=== PATIENT | male | born 1995 | race Caucasian/White ===

== ENCOUNTER 2019-06-06 01:15 | Emergency (ER) | payer BC ==
[2019-06-06] MEDS ORDERED: Sodium Chloride 0.9% 10 ML Syringe FLUSH PRN (01:54)
[2019-06-06] MEDS ORDERED: Sodium Chloride 0.9% 2.5 ML Syringe FLUSH PRN (01:54)
--- NOTE | 2019-06-06 02:04 | EDM.PDOC ---
ED HPI GENERAL MEDICAL PROBLEM - General Chief Complaint: Abdominal Pain Stated Complaint: ABDOMINAL PAIN/RIGHT SIDE PAIN Time Seen by Provider: 06/06/19 01:28 - History of Present Illness INITIAL COMMENTS - FREE TEXT/NARRATIVE: 23-year-old male presents with abdominal pain. Patient ports a 2-day history of mild right abdominal "swelling" about a month ago which mildly on its own. Then he is had about 2 days again of the same swelling. He had very fleeting lower back pain today for about [address] away on its own. Then he began to have right far lower pain this morning in his inguinal crease which went away. Now he has right upper and right middle abdomen pressure which he says feels like something is blowing up or swelling in his abdomen. Patient denies any fever, dysuria, chest pain, shortness of breath, weakness, numbness, sore joints, vision changes, confusion, headache, vision changes. Right Abdomen Pain Score (Numeric/FACES): 3 - Related Data Allergies Allergy/AdvReac Type Severity Reaction Status Date / Time No Known Allergies Allergy Verified 06/06/19 01:28 Home Meds: Home Meds . [No Known Home Meds] 06/06/19 [History] Past Medical History HEENT History: Reports: Impaired Vision Social & Family History - Family History Family Medical History: Noncontributory - Tobacco Use Years of Tobacco use: 20 Packs/Tins Daily: 3 - Caffeine Use Caffeine Use: Reports: None - Recreational Drug Use Recreational Drug Use: Yes Drug Use in Last 12 Months: Yes Recreational Drug Type: Reports: Marijuana/Hashish ED ROS GENERAL - Review of Systems Review Of Systems: Comprehensive ROS is negative, except as noted in HPI. ED EXAM, GENERAL - Physical Exam Exam: See Below Free Text/Narrative:: General: No acute distress. Comfortable. Heent: Examination revealed no pallor, no icterus, no lymphadenopathy. The patient has normal posterior pharynx, moist mucous membranes. Neck: Supple. No JVD. No rigidity. Heart: Normal rate. Reg rhythm. No murmurs appreciated. Lungs: Bilaterally clear to auscultation. No focal findings. Abdomen: Obese. Trace tenderness right upper quadrant. Trace tenderness right lower quadrant. Non-distended, soft, no CVA tenderness. Neuro: Pt is moving all four extremities. EOMI. PERRL. Normal speech. Skin: Exposed areas appeared normally perfused, warm, normal color with no meaningful rashes or lesions. Extremities: Peripheral examination revealed no pedal edema. Peripheral pulses were 2+. Course - Vital Signs Text/Narrative:: This pt left without telling anyone just after I assessed him and we discussed the treatment plan. Our rapport was good, we were planning on initial laboratories, possible US, then reassessment. but the patient before treatment complete. Last Recorded V/S: Last Vital Signs Temp 97.0 F 06/06/19 01:20 Pulse 93 06/06/19 01:20 Resp 18 06/06/19 01:20 BP 147/93 H 06/06/19 01:20 Pulse Ox - Orders/Labs/Meds Meds: Medications Discontinued Medications Generic Name Dose Route Start Last Admin Trade Name Freq PRN Reason Stop Dose Admin Sodium Chloride 10 ml 06/06/19 01:54 Saline Flush FLUSH ASDIRECTED PRN Keep Vein Open Sodium Chloride 2.5 ml 06/06/19 01:54 Saline Flush FLUSH ASDIRECTED PRN Keep Vein Open Departure - Departure Time of Disposition: 02:10 Disposition: Home, Self-Care 01 Condition: Good Clinical Impression: Abdominal pain Qualifiers: Abdominal location: right upper quadrant Qualified Code(s): R10.11 - Right upper quadrant pain - Discharge Information Referrals: PCP,None [Primary Care Provider] - Forms: ED Department Discharge Additional Instructions: Pt left before treatment complete. Sepsis Event Note - Evaluation Sepsis Screening Result: No Definite Risk - Focused Exam Date Exam was Performed: 06/12/19 Time Exam was Performed: 01:32
== END 2019-06-06 02:11 | disposition home or self-care (01) ==
LOC: MW.ED 01:15
DX: R10.11 Right upper quadrant pain (principal); M54.5 Low back pain
CPT/HCPCS: 96372; 99283